=== PATIENT | female | born 1965 | race Caucasian/White ===

== ENCOUNTER 2017-06-25 16:51 | Emergency (ER) | payer MEDICAID ==
[~2017-06-25] VITALS: Ht 170.2 cm; Wt 89.8 kg
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
--- NOTE | 2017-06-25 18:15 | NUR ---
ЕКАТЕРИНА LEE AT BEDSIDE FOR EVAL.
[2017-06-25] MEDS ORDERED: HYDROMORPHONE 1 MG/1 ML DISP.SYRIN IV ONE (18:30)
[2017-06-25] MEDS ORDERED: ONDANSETRON HCL/PF 4 MG/2 ML VIAL ONE (18:41)
[2017-06-25] MEDS ORDERED: MORPHINE SULFATE INJ 4 MG/ML DISP.SYRIN ONE ×2 (18:42→20:24)
[2017-06-25] MEDS: IV NS 0.9% 250 ML BAG IV ONE (18:47)
[2017-06-25] MEDS: ONDANSETRON HCL/PF 4 MG/2 ML VIAL IV ONE (18:48)
[2017-06-25] MEDS: MORPHINE SULFATE INJ 2 MG/ML DISP.SYRIN IV ONE ×2 (18:49→20:26)
[2017-06-25] MEDS ORDERED: CARISOPRODOL 350 MG TABLET ONE (19:41)
[2017-06-25] MEDS ORDERED: predniSONE 20 MG TABLET ONE (19:41)
[2017-06-25] MEDS ORDERED: KETOROLAC TROMETHAMINE INJ 30 MG/ML VIAL ONE (19:41)
[2017-06-25] MEDS: KETOROLAC TROMETHAMINE INJ 30 MG/ML VIAL IV ONE (19:42)
[2017-06-25] MEDS: CARISOPRODOL 350 MG TABLET PO ONE (19:44)
[2017-06-25] MEDS: predniSONE 20 MG TABLET PO ONE (19:46)
--- NOTE | 2017-06-25 19:49 | NUR ---
PT OT RADIOLOGY FOR LUMBAR SPINE XRAY VIA [facility].
--- NOTE | 2017-06-25 21:08 | NUR ---
PT TO RADIOLOGY FOR LUMBAR SPINE CT SCAN VIA [facility].
[2017-06-25 23:16] VITALS: BP 115/57
--- NOTE | 2017-06-25 23:16 | NUR ---
Patient discharged to home in stable condition. Written and verbal after care instructions given. Patient verbalizes understanding of instruction.IV removed. Catheter intact and site benign. Pressure and 4x4 applied to site. No bleeding noted.
== END 2017-06-25 23:17 | disposition home or self-care (01) ==
LOC: ER 16:52
DX: M54.5 Low back pain (principal); I10 Essential (primary) hypertension; G43.909 Migraine, unspecified, not intractable, without status migrainosus; F17.200 Nicotine dependence, unspecified, uncomplicated
CPT/HCPCS: 72100; 72131; 96374; 96375; 96376; 99284; A4606 ×3; J1885; J2270 ×2; J2405; J7030; J7512; Z7610 ×3

== ENCOUNTER 2022-02-21 00:08 | Emergency (ER) | payer MEDICAID, OTHER ==
[~2022-02-21] VITALS: Ht 167.6 cm; Wt 81.6 kg
--- NOTE | 2022-02-21 00:18 | NUR ---
BIBSELF C/O LEFT SIDE CP AND HIGH BP AT HOME. PATIENT ALERT AND ORIENTED X3. AMBULATORY WITH NON LABORED BREATHING IN BED 09 ON MONITOR AND POX AWAITING MD GARCIA.
--- NOTE | 2022-02-21 00:42 | NUR ---
URINE SAMPLE COLLECTED AND SENT TO LAB
--- NOTE | 2022-02-21 00:42 | NUR ---
XRAY AT BEDSIDE
--- NOTE | 2022-02-21 00:56 | NUR ---
IV LINE ESTABLISHED, [id number]
--- NOTE | 2022-02-21 00:56 | NUR ---
BLOOD COLLECTED AND SENT TO LAB
[2022-02-21] MEDS ORDERED: ACETAMINOPHEN ES 500 MG TABLET ONE (00:59)
--- NOTE | 2022-02-21 01:02 | NUR ---
[facility]
[2022-02-21 01:22] LABS: BASOPHILS % (AUTO) 0.6 % (0.0-2.0); EOSINOPHILS % (AUTO) 4.9 % (0.0-6.0); HEMATOCRIT 41 % (33-45); HEMOGLOBIN 13.5 g/dL (11.5-14.8); LYMPHOCYTES % (AUTO) 39.6 % (20.0-44.0); MEAN CORPUSCULAR HGB CONC 33 g/dl (31.0-36.0); MEAN CORPUSCULAR VOLUME 90 fL (82-100); MONOCYTES # (AUTO) 0.7 K/uL (0.1-1.30); MONOCYTES % (AUTO) 8.6 % (2.0-12.0); NEUTROPHILS # (AUTO) 3.5 K/uL (1.8-8.9); NEUTROPHILS % (AUTO) 46.3 % (43.0-81.0); PLATELET COUNT (AUTO) 264 K/uL (150-450); RED BLOOD CELL COUNT(AUTO) 4.54 MIL/uL (4.0-5.2); WHITE BLOOD COUNT (AUTO) 7.6 K/uL (4.3-11.0)
[2022-02-21 01:28] LABS: BILIRUBIN,URINE NEGATIVE (NEGATIVE); COLOR,URINE YELLOW (YELLOW); LEUKOCYTE ESTERASE ,URINE TRACE (NEGATIVE); NITRITE, URINE NEGATIVE (NEGATIVE); PROTEIN,URINE NEGATIVE (NEGATIVE); UGLUCOSE NEGATIVE (NEGATIVE); UROBILINOGEN,URINE 0.2 EU/dL (0.2)
[2022-02-21] MEDS ORDERED: ACETAMINOPHEN ES 500 MG TABLET PO ONE (01:30)
[2022-02-21 01:33] LABS: CALCIUM, SERUM 9.3 mg/dL (8.5-10.1); CARBON DIOXIDE 34 mmol/L (21-32); CHLORIDE 105 mmol/L (98-107); CREATININE 0.9 mg/dL (0.6-1.3); GLUCOSE 107 mg/dL (74-106); POTASSIUM 3.9 mmol/L (3.5-5.1); SODIUM SERUM 142 mmol/L (136-145); UREA NITROGEN, BLOOD 17 mg/dL (7-18)
[2022-02-21 01:51] LABS: BACTERIA,URINE Many /HPF (None Seen); SQUAMOUS EPITHELIAL CELL,UR Few /HPF (None Seen); YEAST,URINE Moderate /HPF (None Seen)
[2022-02-21 01:52] LABS: URINE AMORPHOUS PHOSPHATES MANY /HPF (None Seen)
[2022-02-21] MEDS ORDERED: FLUC150T PO (02:26)
--- NOTE | 2022-02-21 02:34 | NUR ---
IV removed. Catheter intact and site benign. Pressure and 4x4 applied to site. No bleeding noted.
--- NOTE | 2022-02-21 02:35 | NUR ---
Patient discharged to home in stable condition. Written and verbal after care instructions given. Patient verbalizes understanding of instruction.
[2022-02-21 03:40] VITALS: BP 151/87
== END 2022-02-21 03:41 | disposition home or self-care (01) ==
LOC: ER 00:13
DX: R07.89 Other chest pain (principal); B37.9 Candidiasis, unspecified; I10 Essential (primary) hypertension; G43.909 Migraine, unspecified, not intractable, without status migrainosus; F17.200 Nicotine dependence, unspecified, uncomplicated
CPT/HCPCS: 36415; 71045-TC; 80048-TC; 81001; 83880; 84484-TC; 85025-TC; 85378-TC; 87086-TC; 87186-TC

== ENCOUNTER 2022-12-03 00:05 | Emergency (ER) | payer OTHER ==
[~2022-12-03] VITALS: Ht 165.1 cm; Wt 90.7 kg
[~2022-12-03 00:05] MED LIST: FLUC150T PO
--- NOTE | 2022-12-03 00:50 | NUR ---
BIBDAUGHTER FROM HOME C/O LEFT MIDDLE FINGER INFECTION X1 WEEK.
[2022-12-03] MEDS ORDERED: LIDOCAINE HCL/MPF 1% 30 ML VIAL IJ ONE (00:59)
[2022-12-03] MEDS ORDERED: BUPIVACAINE 0.5 % PF 150 MG/30 ML VIAL ONE ×2 (00:59→01:09)
[2022-12-03] MEDS ORDERED: LIDOCAINE 1% INJ 50 ML MDV IJ ONE (01:09)
[2022-12-03] MEDS ORDERED: IBUP-1957 PO (01:23)
[2022-12-03] MEDS ORDERED: CEPH500T PO (01:23)
--- NOTE | 2022-12-03 01:30 | NUR ---
MD INJECTED LIDOCAIN AND BUP MARCAIN FOR EXCISION BUT PT REFUSED FOR PROCEDURE TO BE DONE.
--- NOTE | 2022-12-03 01:45 | NUR ---
Patient discharged to home in stable condition. Written and verbal after care instructions given. Patient verbalizes understanding of instruction.
[2022-12-03] MEDS ORDERED: CEPHALEXIN MONOHYDRATE 500 MG CAPSULE PO ONE (02:00)
[2022-12-03 02:26] VITALS: BP 147/94
== END 2022-12-03 01:45 | disposition home or self-care (01) ==
LOC: ER 00:06
DX: L03.012 Cellulitis of left finger (principal); I10 Essential (primary) hypertension; G43.909 Migraine, unspecified, not intractable, without status migrainosus; F17.200 Nicotine dependence, unspecified, uncomplicated; Z79.899 Other long term (current) drug therapy
CPT/HCPCS: 64450; 99284; J3490 ×4